=== PATIENT | female | born 1970 | race Caucasian/White ===

== ENCOUNTER 2017-03-01 16:39 | Outpatient (CLI) | payer OTHER ==
--- NOTE | 2017-03-01 19:02 | RAD ---
PA AND LATERAL VIEWS CHEST 03/01/17 HISTORY: Screening for tuberculosis. 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 FINDINGS: Comparison is made with the exam of 02/24/16. The heart size is normal. the lungs are well expanded without focal areas of consolidation, pneumotho rax, or pleural effusions. There are mild degenerative changes in the spine. IMPRESSION: Stable exam. No acute process. POS: [facility]
== END 2017-03-01 16:40 | disposition home or self-care (01) ==
LOC: SCSRAD 16:39
PROVIDERS: ATTEND Dermatology
DX: Z51.81 Encounter for therapeutic drug level monitoring (principal); Z79.899 Other long term (current) drug therapy
CPT/HCPCS: 71020

== ENCOUNTER 2017-04-04 13:43 | Outpatient (CLI) | payer OTHER ==
--- NOTE | 2017-04-04 16:17 | RAD ---
UPPER GI: Date: 04-04-17 History: History of hiatal hernia repair and laparoscopic gastric banding procedure. Patient has dysp hagia and feels as if food and liquids become lodged in the epigastric region. Fluoroscopy: Total fluoroscopy time is 2.5 minutes. Total dose of 1959 mGy*cm^2. FINDINGS: Single contrast upper GI was performed. Resin Mixer image demonstrates laparoscopic gastric band in place w hich is oriented in the appropriate direction. There are surgical clips seen in the epigastric region as well. Visualized lung bases are clear and bowel gas pattern is nonspecific. Upper GI demonstrates normal appearance of the esophagus without evidence of mucosal irregularity. Th ere is mild decrease in esophageal primary peristalsis. There is narrowing at the level of the gastri c band with transient hold up of contrast. With upright positioning, contrast eventually flows freely through this region into the stomach. The stomach, duodenum, and duodenal bulb demonstrate a normal appearance. Upon swallowing with supine imaging, there is hold up of contrast within the esophagus which does not traverse the region of the gastric band and GE junction into the stomach. Patient was placed in upri ght position and contrast eventually passed into the stomach. No gastroesophageal reflux was demonstr ated during this exam. IMPRESSION: 1. Narrowing and transient hold up of contrast at the level of the gastric band. There are post-surgi nigel changes in this region which may be related to prior hiatal hernia repair. 2. Normal appearing esophagus with mild decrease in primary esophageal peristalsis. No tertiary contr actions were appreciated. POS: [facility]
== END 2017-04-04 13:44 | disposition home or self-care (01) ==
LOC: RAD 13:43
PROVIDERS: ATTEND Internal Medicine Gastroenterology
DX: R13.10 Dysphagia, unspecified (principal); R19.2 Visible peristalsis; Z98.84 Bariatric surgery status; Z98.890 Other specified postprocedural states
CPT/HCPCS: 74241

== ENCOUNTER 2017-05-06 08:16 | Outpatient (CLI) | payer OTHER ==
--- NOTE | 2017-05-06 12:27 | NM ---
RADIONUCLIDE GASTRIC EMPTYING SCAN: Date: 05/06/17 HISTORY: Functional dyspepsia, status post lap band surgery. RADIOPHARMACEUTICAL: 2 mCi technetium-99m sulfur colloid administered orally in scrambled eggs. FINDINGS: There is 88% emptying of the ingested gastric contents at 1 hour and 99% emptying at 2 hours. The nigel culated gastric emptying halftime is 51 minutes. IMPRESSION: Rapid gastric emptying. POS: [facility]
== END 2017-05-06 08:17 | disposition home or self-care (01) ==
LOC: NM 08:16
PROVIDERS: ATTEND Internal Medicine Gastroenterology
DX: R13.19 Other dysphagia (principal); Z98.890 Other specified postprocedural states; Z98.84 Bariatric surgery status
CPT/HCPCS: 78264; A9541

== ENCOUNTER 2017-06-11 20:30 | Outpatient (CLI) | payer OTHER | END 2017-06-11 20:31 | disposition home or self-care (01) | LOC: SLEEPLAB 20:30 | PROVIDERS: ATTEND Family Medicine | DX: G47.33 Obstructive sleep apnea (adult) (pediatric) (principal); G47.10 Hypersomnia, unspecified; R53.83 Other fatigue; R06.83 Snoring; E66.9 Obesity, unspecified; G31.84 Mild cognitive impairment of uncertain or unknown etiology; K21.9 Gastro-esophageal reflux disease without esophagitis | CPT/HCPCS: 95810 ==

== ENCOUNTER 2017-07-19 14:37 | Outpatient (CLI) | payer OTHER ==
--- NOTE | 2017-07-19 15:46 | RAD ---
CHEST TWO VIEWS: 07/19/17 HISTORY: Preop. COMPARISON: 03/01/17. FINDINGS: The cardiac silhouette and pulmonary vasculature are unremarkable. Mediastinum is midline. No conflue nt air space consolidation, pneumothorax or pleural fluid are evident. Bariatric device overlies the upper stomach. IMPRESSION: No active cardiopulmonary abnormalities are demonstrated. POS: [facility]
[2017-07-19 15:55] LABS: Hemoglobin A1c 5.3 % (4.0-6.0)
[2017-07-19 16:03] LABS: #Eosinphils 0.1 thou/uL (0.0-0.7); #Lymphocytes 1.4 thou/uL (1.20-3.40); #Monocytes 0.2 thou/uL (0.11-0.59); #Neutrophils 8.4 thou/uL (1.40-6.50); %Basophils 0.4 % (0.0-1.0); %Eosinophils 1.1 % (0.0-10.0); %Monocytes 1.4 % (0.0-10.0); %Neutrophils 83.1 % (42.0-75.0); Mean Corpuscular HGB CONC 34.4 g/dL (32.0-36.0); Mean Corpuscular Hemoglobin 30.2 pg (27.0-31.0); Mean Corpuscular Volume 87.8 fl (81.0-99.0); Platelet Count 401 thou/uL (130-400); RBC Distribution Width 12.2 % (11.5-14.5); Red Blood Cell (RBC) Count 4.63 mill/uL (4.20-5.40); White Blood Cell (WBC) Count 10.1 thou/uL (4.8-10.8)
--- NOTE | 2017-07-19 16:08 | EKG ---
Test Reason : Blood Pressure : / mmHG Vent. Rate : 079 BPM Atrial Rate : 079 BPM P-R Int : 160 ms QRS Dur : 088 ms QT Int : 390 ms P-R-T Axes : 051 014 025 degrees QTc Int : 447 ms Normal sinus rhythm Cannot rule out Anterior infarct , age undetermined Abnormal ECG Confirmed by JOSÉ ANTONIO GOSS ([id number]) on 07/19/2017 4:08:22 PM Referred By: GABINO Confirmed By:JOSÉ ANTONOI GOSS
[2017-07-19 16:09] LABS: ALT (SGPT) 17 U/L (8-55); AST (SGOT) 17 U/L (5-34); Albumin 4.2 g/dL (3.5-5.0); Alkaline Phosphatase 74 U/L (40-150); Anion Gap 16 mmol/L (10-20); BUN (Urea Nitrogen) 11 mg/dL (7.0-18.7); Bilirubin, Direct 0.1 mg/dL (0.1-0.3); Bilirubin, Total 0.3 mg/dL (0.2-1.2); Calc. Creatinine Clearance 0 mL/min (70-130); Calcium 9.3 mg/dL (7.8-10.44); Carbon Dioxide 21 mmol/L (22-29); Chloride 104 mmol/L (98-107); Estimated GFR-MDRD 77; Globulin 3.4 g/dL (2.4-3.5); Glucose 133 mg/dL (70-105); Potassium 4.2 mmol/L (3.5-5.1); Protein, Total 7.6 g/dL (6.0-8.3); Sodium 137 mmol/L (136-145)
[2017-07-19 16:33] LABS: BHCG - Serum Negative (NEGATIVE); Pregs Control Background? CLEAR/WHITE (CLR/WHITE); Pregs Control Bar Appear? YES (CONTROL BAR)
== END 2017-07-19 14:38 | disposition home or self-care (01) ==
LOC: LABBT 14:37
PROVIDERS: ATTEND Surgery
DX: Z01.818 Encounter for other preprocedural examination (principal); R94.31 Abnormal electrocardiogram [ECG] [EKG]
CPT/HCPCS: 71046; 80053; 80076; 83036; 84703; 85025; 93005; 93010

== ENCOUNTER 2017-07-22 08:53 | Day surgery (SDC) | payer OTHER ==
[2017-07-19 15:10] VITALS: BMI 33.7
[2017-07-22] MEDS ORDERED: Heparin 5,000 UNITS/ML VIAL ONE (09:38)
[2017-07-22] MEDS ORDERED: CEFAZOLIN/Water 2 GM/20 ML SYRINGE ONE (09:38)
[2017-07-22] MEDS ORDERED: Bupivacaine/Epinephrine 0.25% 30 ML VIAL ONE (10:43)
[2017-07-22] MEDS ORDERED: Fentanyl 100 MCG/2 ML VIAL ONE ×3 (10:47→12:47)
[2017-07-22] MEDS ORDERED: Midazolam HCl 2 mg/2 ml Vial ONE (10:53)
[2017-07-22] MEDS ORDERED: Scopolamine 1.5 mg/72 hour Patch ONE (10:54)
[2017-07-22] MEDS ORDERED: Ondansetron HCl/PF 4 MG/2 ML Vial ONE (11:11)
--- NOTE | 2017-07-22 12:09 | OP ---
DATE OF PROCEDURE: 07/22/2017 PREOPERATIVE DIAGNOSIS: Dysfunctional lap band. SURGEON: Berhane Jeffery M.D. PROCEDURE: Laparoscopic removal of band and port. INDICATIONS: A 46-year-old female who had a lap band placed about 6 years ago and she has had progre ssive reflux despite removal of all the fluid. FINDINGS: Intact system. PROCEDURE IN DETAIL: After informed consent was obtained, the patient was taken to the operating sushma m and given general endotracheal anesthesia. She was placed in supine position, abdomen was prepped and draped in usual fashion. Local anesthesia infiltrated subcutaneously and deep. A 5 mm incision was performed approximately 8 inches below the xiphoid slightly to the left. Veress needle inserted. Drop test performed. Pneumoperitoneum was created to a volume of 2 liters of carbon dioxide. Util izing a bladeless 5 mm trocar and 0 degree laparoscope direct visual entry in the abdominal cavity wa s performed. Pneumoperitoneum was created to a pressure of 15 mmHg. The patient placed in steep rev erse Trendelenburg position. Nathansen liver retractor inserted. Left lobe of liver retracted super iorly. A 5 mm port was placed just left of the falciform and a 12 mm port was placed where the port was on the left side. The tubing was divided and the tubing then tracked down to the buckle. Adhesi ons were lysed sharply with electrocautery to expose the buckle. The buckle was unlocked and the cap alissa incised then the band was removed from around the stomach and then removed from the abdomen. He mostasis was assured. Trocars and retractors removed. The lap band port was then dissected out and removed. Hemostasis was assured. The subcutaneous reapproximated with interrupted 3-0 Vicryl and th e skin closed with interrupted 4-0 Rapide. Dermabond applied. The patient tolerated the procedure w ell and was transferred to recovery in good condition. Sponge and needle count verified correct x2.
== END 2017-07-22 14:02 | disposition home or self-care (01) ==
LOC: SDC 08:53
PROVIDERS: ATTEND Surgery
PROC: 0DP64CZ Removal of Extraluminal Device from Stomach, Percutaneous Endoscopic Approach (ICD-10-PCS; principal; 2017-07-22)
DX: K95.09 Other complications of gastric band procedure (principal); K21.9 Gastro-esophageal reflux disease without esophagitis; Z98.890 Other specified postprocedural states
CPT/HCPCS: J1644; J2250; J2405; J3010

== ENCOUNTER 2017-07-26 19:30 | Outpatient (CLI) | payer OTHER | END 2017-07-26 19:31 | disposition home or self-care (01) | LOC: SLEEPLAB 19:30 | PROVIDERS: ATTEND Family Medicine | DX: G47.33 Obstructive sleep apnea (adult) (pediatric) (principal); G47.10 Hypersomnia, unspecified; R06.83 Snoring; E66.9 Obesity, unspecified; G31.84 Mild cognitive impairment of uncertain or unknown etiology | CPT/HCPCS: 95811 ==

== ENCOUNTER 2018-07-04 11:39 | Outpatient (CLI) | payer OTHER ==
--- NOTE | 2018-07-04 11:55 | RAD ---
Exam: Chest 2 views HISTORY:Long-term medication use. Annual radiographic surveillance Comparison: 07/19/2017 FINDINGS: Lungs: No masses or consolidation. Cardiac silhouette: Normal size Pulmonary vessels: Normal Pleural Spaces: Clear Pneumothorax: None Osseous abnormalities: None of acuity. IMPRESSION: No focal consolidation.
== END 2018-07-04 11:40 | disposition home or self-care (01) ==
LOC: SCSRAD 11:39
DX: Z51.81 Encounter for therapeutic drug level monitoring (principal); Z79.899 Other long term (current) drug therapy
CPT/HCPCS: 71046

== ENCOUNTER 2018-11-04 17:50 | Inpatient (IN) | payer OTHER ==
--- NOTE | 2018-11-04 18:24 | RAD ---
XR Chest 1 View Portable History: Chest pain Comparison: Radiograph July 04, 2018 Findings: Lungs are clear. No pneumothorax or effusion. Cardiac silhouette and mediastinal contours a re within normal limits. No acute osseous abnormality. Impression: No acute intrathoracic abnormality.
[2018-11-04 18:30] LABS: #Basophils 0.1 thou/uL (0.0-0.2); #Eosinphils 0.4 thou/uL (0.0-0.7); #Lymphocytes 3.5 thou/uL (1.20-3.40); #Monocytes 0.6 thou/uL (0.11-0.59); #Neutrophils 4.9 thou/uL (1.40-6.50); %Basophils 0.6 % (0.0-1.0); %Eosinophils 4.3 % (0.0-10.0); %Lymphocytes 36.9 % (21.0-51.0); %Monocytes 6.3 % (0.0-10.0); %Neutrophils 51.8 % (42.0-75.0); Hemoglobin 13.8 g/dL (12.0-16.0); Mean Corpuscular HGB CONC 33.7 g/dL (32.0-36.0); Mean Corpuscular Hemoglobin 28.5 pg (27.0-31.0); Mean Corpuscular Volume 84.5 fL (78.0-98.0); Mean Platelet Volume 7.8 fL (7.4-10.4); Platelet Count 308 thou/uL (130-400); RBC Distribution Width 12.7 % (11.5-14.5); Red Blood Cell (RBC) Count 4.84 mill/uL (4.20-5.40); White Blood Cell (WBC) Count 9.4 thou/uL (4.8-10.8)
[2018-11-04] MEDS ORDERED: Morphine 4 MG/ML VIAL ONE (18:44)
[2018-11-04] MEDS ORDERED: Aspirin Chewable 81 MG TAB ONE ×2 (18:44→18:45)
[2018-11-04 18:51] LABS: ALT (SGPT) 38 U/L (8-55); AST (SGOT) 22 U/L (5-34); Albumin 4.4 g/dL (3.5-5.0); Alkaline Phosphatase 68 U/L (40-150); Anion Gap 15 mmol/L (10-20); BUN (Urea Nitrogen) 15 mg/dL (7.0-18.7); Bilirubin, Total 0.3 mg/dL (0.2-1.2); CK (CPK) 83 U/L (29-168); Calc. Creatinine Clearance 0 mL/min (70-130); Carbon Dioxide 26 mmol/L (22-29); Chloride 103 mmol/L (98-107); Estimated GFR-MDRD 64; Globulin 3.3 g/dL (2.4-3.5); Glucose 127 mg/dL (70-105); Lipase 39 U/L (8-78); Potassium 3.4 mmol/L (3.5-5.1); Protein, Total 7.7 g/dL (6.0-8.3); Sodium 141 mmol/L (136-145)
[2018-11-04] MEDS ORDERED: Nitroglycerin 2% Ointment 1 INCH/1 GM Packet ONE (20:54)
[2018-11-04 21:36] LABS: Troponin I Less than 0.010 ng/mL (< 0.028)
[2018-11-04] MEDS ORDERED: Acetaminophen 325 MG TAB PO PRN (22:21)
[2018-11-04] MEDS ORDERED: Ondansetron PF 4 MG/2 ML Vial IVP PRN (22:36)
[2018-11-04 22:45] VITALS: BMI 41.0
[2018-11-04] MEDS: Ondansetron ODT 4 MG TAB PO PRN (23:08)
[2018-11-04] MEDS ORDERED: Nitroglycerin 0.4 MG TAB (25 Tab Bottle) PO PRN (23:11)
[2018-11-04] MEDS ORDERED: PROVENTIL INHALER 6.7 G (200 INHALATIONS) INH PRN (23:13)
[2018-11-04] MEDS ORDERED: Furosemide 20 MG TAB PO PRN (23:13)
[2018-11-04] MEDS ORDERED: Sodium Chloride 0.9% (PF) 10 ML VIAL FS PRN (23:37)
[2018-11-04] MEDS: Morphine 2 MG/ML SYRINGE IVP PRN (23:51)
[2018-11-05 01:21] LABS: Troponin I Less than 0.010 ng/mL (< 0.028)
--- NOTE | 2018-11-05 01:51 | HP ---
PRIMARY CARE PHYSICIAN: Domingo Shaw MD CHIEF COMPLAINT: Chest pain. HISTORY OF PRESENT ILLNESS: Ms. Williamson is a pleasant 48-year-old female, who has a past medical history of hypertension, gastroesophageal reflux disease, pustular psoriasis, who had presented to [facility] for a new onset of chest pain that had radiated to her left upper quadrant that started around 3:00 a.m. and woke her up of a deep sleep. She states that she had taken her home Tums and Gas-X; however, she had not noticed any sort of relief from this. She states that she had also noticed that her blood pressure was also increasing, therefore, she had wanted to be seen in the ED. In the ED, her EKG was stable and showed no further changes from a previous study. Portable chest x-ray was performed and found to be normal. The patient was given oral aspirin 324 mg, IV morphine and 1-inch nitroglycerin paste; however, she states that that helped minimally, she had also complained of some mild nausea. Therefore, she was treated with Zofran, which had seemed to help. Blood pressure and other vital signs remained stable, she had denied any fever, chills, any headache, blurred vision, dizziness, any palpitations, shortness of breath, or any change in her stool. The patient states that she had similar symptoms in 2018 where she had undergone an upper EGD, which found esophagitis. However, she states that this time the pain is worse. She states that she was recently started on Taltz for her psoriasis and that she receives every other week. REVIEW OF SYSTEMS: All other systems reviewed and found to be negative unless mentioned in the HPI. PAST MEDICAL HISTORY: Hypertension, gastroesophageal reflux disease, pustular psoriasis. PAST SURGICAL HISTORY: Hernia repair, gastric lap band in 2007 and removal in 2018, appendectomy. PSYCHIATRIC HISTORY: None. SOCIAL HISTORY: The patient reports drinking socially, which is very rarely; however, denies any tobacco or illicit drug use. She lives at home alone. KNOWN ALLERGIES: No known drug allergies. CURRENT HOME MEDICATIONS: 1. Taltz. 2. Cetirizine 10 mg p.o. daily. 3. Fluticasone one spray each nostril daily. 4. Loratadine 10 mg p.o. at bedtime. 5. Protonix 40 mg p.o. daily. 6. Potassium 900 mg p.o. daily. 7. Albuterol sulfate 1 puff inhalation q.i.d. p.r.n. wheezing. 8. Bisoprolol/Hydrochlorothiazide 5 mg/6.25 mg daily. 9. Buspirone 10 mg p.o. daily. 10. Furosemide 20 mg p.o. daily p.r.n. edema. 11. Montelukast 10 mg p.o. daily. PHYSICAL EXAMINATION: VITAL SIGNS: BP 130/76, pulse 64, respirations 20, temperature 98.6, O2 saturation 97% on room air. GENERAL: The patient is awake, alert, and oriented x3, currently lying comfortably in bed and in no acute distress. HEENT: Atraumatic, normocephalic. Pupils are round and reactive to light. Extraocular muscles intact. Moist mucous membranes noted. NECK: Soft and supple. Trachea midline. CARDIOVASCULAR: Positive S1 and S2. Regular rate and rhythm. No murmur auscultated. RESPIRATORY: Clear to auscultation bilaterally. No wheezes, rales, or rhonchi. ABDOMEN: Soft, nontender. Bowel sounds present. MUSCULOSKELETAL: Strength 5+ bilateral upper and lower extremities. Moves all extremities equal. No edema noted. NEUROLOGIC: Cranial nerves 2 through 12 grossly intact. No focal deficits noted. Speech intact and normal. Gait not assessed. SKIN: Warm, dry, and intact. No rashes. No ulceration noted. PSYCHIATRIC: Good mood and affect. LABORATORY DATA: WBC 9.4, RBC 4.84, hemoglobin 13.8, platelet 308. Sodium 141, potassium 3.4, anion gap 15, BUN 15, creatinine 0.93, estimated GFR is 64, glucose 127, AST 22, ALT 38. Troponin less than 0.010 x2. Lipase 39. DIAGNOSTIC IMAGING: Portable chest x-ray showed no acute intrathoracic abnormality. ASSESSMENT AND PLAN: 1. Chest pain, serial troponins are currently negative x2. She will undergo cardiac stress test in the morning to rule out acute coronary syndrome. Due to her recent history of gastroesophageal reflux disease and esophagitis, she will also be treated with IV Protonix as this could also be a cause. 2. Hypertension. Continue home regimen. Monitor blood pressure and other vital signs closely. 3. Gastroesophageal reflux disease as above. Continue on IV Protonix and monitor for symptoms. 4. History of psoriasis, currently stable at this time. 5. Deep venous thrombosis and gastrointestinal prophylaxis. 6. Code status, full code. DISPOSITION: Pending further workup and clinical findings. Job ID: [id number]
[2018-11-05 06:33] LABS: #Basophils 0.1 thou/uL (0.0-0.2); #Eosinphils 0.2 thou/uL (0.0-0.7); #Lymphocytes 2.4 thou/uL (1.20-3.40); #Monocytes 0.7 thou/uL (0.11-0.59); %Basophils 0.5 % (0.0-1.0); %Eosinophils 1.9 % (0.0-10.0); %Lymphocytes 21.2 % (21.0-51.0); %Monocytes 5.8 % (0.0-10.0); %Neutrophils 70.5 % (42.0-75.0); Hemoglobin 12.8 g/dL (12.0-16.0); Mean Corpuscular HGB CONC 33.8 g/dL (32.0-36.0); Mean Corpuscular Hemoglobin 29.1 pg (27.0-31.0); Mean Corpuscular Volume 86.1 fL (78.0-98.0); Mean Platelet Volume 8.5 fL (7.4-10.4); Platelet Count 278 thou/uL (130-400); RBC Distribution Width 12.8 % (11.5-14.5); Red Blood Cell (RBC) Count 4.41 mill/uL (4.20-5.40); White Blood Cell (WBC) Count 11.4 thou/uL (4.8-10.8)
[2018-11-05 06:47] LABS: Anion Gap 13 mmol/L (10-20); BUN (Urea Nitrogen) 11 mg/dL (7.0-18.7); Calc. Creatinine Clearance 144 mL/min (70-130); Calcium 9.3 mg/dL (7.8-10.44); Carbon Dioxide 27 mmol/L (22-29); Cardiac Risk 5.4 (Less than 4.5); Chloride 103 mmol/L (98-107); Cholesterol 190 mg/dl (< 200 Desired); Estimated GFR-MDRD 71; Glucose 113 mg/dL (70-105); HDL Cholesterol 35 mg/dL (>60 Neg Risk); LDL Cholesterol, Calculated 118 mg/dL; Potassium 4.3 mmol/L (3.5-5.1); Sodium 139 mmol/L (136-145); Triglycerides 183 mg/dL (Less than 150)
[2018-11-05] MEDS: Aspirin 81 mg Enteric Coated Tablet PO SCH (08:56)
[2018-11-05] MEDS: Montelukast Sodium 10 mg Tablet PO SCH (08:56)
[2018-11-05] MEDS: busPIRone HCl 10 MG TAB PO SCH (08:56)
[2018-11-05] MEDS: Hydrochlorothiazide 25 MG TAB PO SCH (08:57)
[2018-11-05] MEDS: Pantoprazole 40 MG VIAL IVP SCH ×2 (08:57→23:14)
[2018-11-05] MEDS: Enoxaparin Sodium 40 MG/0.4 ML SYRINGE SC SCH (08:57)
[2018-11-05] MEDS: Morphine 2 MG/ML SYRINGE IVP PRN (08:57)
[2018-11-05] MEDS ORDERED: Famotidine 20 MG TAB PO SCH (09:00)
[2018-11-05] MEDS ORDERED: HCTZ PO SCH (09:00)
[2018-11-05] MEDS ORDERED: BISOPROLOL FUMARATE PO SCH (09:00)
[2018-11-05] MEDS: Ondansetron ODT 4 MG TAB PO PRN (09:05)
--- NOTE | 2018-11-05 13:21 | NM ---
EXAM: Nuclear medicine cardiac perfusion examination with ejection fraction HISTORY: Chest pain TECHNIQUE: Stress images: 30.8 mCi of technetium 9M sestamibi; Lexiscan COMPARISON: None FINDINGS: Tomographic images: No perfusion defects seen on the attenuated corrected images.. Gated images: Normal wall motion and ejection fraction of 62%. EDV: 98 mL LHR: 0.3 IMPRESSION: No perfusion defects with stress.
[2018-11-05] MEDS: Bisoprolol Fumarate 5 MG TAB PO SCH (14:37)
--- NOTE | 2018-11-05 16:02 | PDOC.HOSPP ---
- Subjective Encounter Date: 11/05/18 Encounter Time: 15:57 Subjective: Patient states she continues to feel unwell. Denies any chest pain and states she feels more of LUQ/epigastric pain. Rates it a 4/10 in severity and states it has been constant. Has had persistent nausea with vomiting. [place] nauseated during the stress test and vomited right before it was done. Reports a history of pyelonephritis at a young age. States pain is not as severe but she has been experiencing dysuria for the last few days. No hematuria. Also has had a cold with sinus congestion and cough. [place] cold with chills/ sweats at home. No neck pain or stiffness. No diarrhea. Denies any sob. - Objective Vital Signs & Weight: Vital Signs (12 hours) Temp Pulse Resp BP Pulse Ox 11/05/18 14:00 98.8 F 78 18 131/70 98 11/05/18 07:49 98.2 F 67 18 137/73 93 L 11/05/18 04:16 98.1 F 81 16 138/72 94 L Weight Weight 254 lb 3.2 oz I&O: 11/04/18 11/05/18 11/06/18 06:59 06:59 06:59 Intake Total 480 11 Output Total 300 300 Balance 180 -289 Result Diagrams: 11/05/18 06:07 11/05/18 06:07 ROS - Review of Systems Constitutional: reports: chills, sweats, malaise Eyes: denies: pain, vision change, conjunctivae inflammation, eyelid inflammation, redness, other ENT: reports: nose congestion Respiratory: reports: cough. denies: dry, shortness of breath, hemoptysis, SOB with excertion, pleuritic pain, sputum, wheezing, other Cardiovascular: denies: chest pain, palpitations, orthopnea, paroxysmal noc. dyspnea, edema, light headedness, other Gastrointestinal: reports: nausea, vomitting, abdominal pain. denies: diarrhea , constipation, melena, hematochezia, other Genitourinary: reports: dysuria. denies: frequency, incontinence, hematuria, retention, other Musculoskeletal: denies: neck pain, shoulder pain, arm pain, back pain, hand pain, leg pain, foot pain, other Skin: denies: rash, lesions, jace, bruising, other - Medication Medications: Active Medications Generic Name Dose Route Start Last Admin Trade Name Freq PRN Reason Stop Dose Admin Aspirin 81 mg 11/05/18 09:00 11/05/18 08:56 Ecotrin PO 81 mg DAILY KEVIN Administration Bisoprolol Fumarate 2.5 mg 11/05/18 09:00 11/05/18 14:37 Zebeta PO 2.5 mg DAILY KEVIN Administration Buspirone HCl 10 mg 11/05/18 09:00 11/05/18 08:56 Buspar PO 10 mg DAILY KEVIN Administration Enoxaparin Sodium 40 mg 11/05/18 09:00 11/05/18 08:57 Lovenox SC Not Given 0900 [facility] Hydrochlorothiazide 6.25 mg 11/05/18 09:00 11/05/18 08:57 Hydrochlorothiazide PO 6.25 mg DAILY KEVIN Administration Montelukast Sodium 10 mg 11/05/18 09:00 11/05/18 08:56 Singulair PO 10 mg DAILY KEVIN Administration Morphine Sulfate 2 mg 11/04/18 23:33 11/05/18 08:57 Morphine IVP 2 mg Q4H PRN Administration Pain Ondansetron HCl 4 mg 11/04/18 22:36 11/05/18 09:05 Zofran Odt PO 4 mg Q6H PRN Administration Nausea/Vomiting Pantoprazole Sodium 40 mg 11/05/18 09:00 11/05/18 08:57 Protonix IVP 40 mg Q12HR KEVIN Administration - Exam NAD, awake alert Eye: PERRL, anicteric sclera ENT: normocephalic atraumatic, no oropharyngeal lesions, moist mucosa Neck: supple, symmetric, no JVD, no thyromegaly, no lymphadenopathy Heart: RRR Respiratory: CTAB, no wheezes, no rales, no ronchi, normal chest expansion, no tachypnea Gastrointestinal: soft, non-distended, normal bowel sounds, no palpable masses, no guarding, no rigidity, tender to palpation Gastrointestinal - other findings: Rebound tenderness to LUQ, discomfort with palpation of LUQ/epigastric area Extremities: negative: no cyanosis, no clubbing, no edema, 1+ LE edema, 2+ LE edema, clubbing Skin: normal turgor, no lesions, no rashes Neurological: CN's grossly intact, normal sensation to touch, no weakness, no focal deficits, no new deficit Musculoskeletal: normal tone, normal strength, no muscle wasting Psychiatric: normal affect, normal behavior, A&O x 3 Hosp A/P (1) LUQ pain Code(s): R10.12 - LEFT UPPER QUADRANT PAIN Status: Acute (2) Nausea & vomiting Code(s): R11.2 - NAUSEA WITH VOMITING, UNSPECIFIED Status: Acute (3) Congestion of upper respiratory tract Code(s): J98.8 - OTHER SPECIFIED RESPIRATORY DISORDERS Status: Acute (4) Obesity Code(s): E66.9 - OBESITY, UNSPECIFIED Status: Chronic (5) Hypertension Code(s): I10 - ESSENTIAL (PRIMARY) HYPERTENSION Status: Chronic - Plan Patient underwent ACS rule out, stress test normal. EF within normal range. Troponins negative x 3. Does not appear to have chest pain, pain is in LUQ abdominal pain, tender to palpation and with N/V. Persistent since yesterday. LFTs normal. Lipase normal yesterday. WCC slightly elevated today. Patient afebrile. Hx of pyelonephritis and with dysuria. Will check UA/UCx, if abnormal will obtain CT stone protocol. Continue anti-emetics. Hx of GERD, possible gastritis. Will try GI cocktail. Will place patient on clear liquid diet.
[2018-11-05] MEDS ORDERED: Lidocaine 2% Viscous Solution 20 ML, Aluminum & Magnesium Hydroxide 30 ML, Donnatal Eli... SSW SCH (16:15)
[2018-11-05 17:20] LABS: Lactic Acid 2.1 mmol/L (0.5-2.2)
[2018-11-05 17:21] LABS: Bacteria/HPF None Seen HPF (None Seen); Bilirubin Negative (Negative); Blood, Urine Negative (Negative); Clarity Clear (Clear); Glucose, Urine (Dipstick) Normal (Negative); Leukocyte Negative Leu/uL (Negative); Nitrite Negative (Negative); Protein, Urine (Dipstick) Negative (Neg-Trace); RBC/HPF 0-3 HPF (0-3); Squamous Epithelial 0-3 HPF (0-3); Urobilinogen Normal mg/dL (Less than 2); WBC/HPF 0-3 HPF (0-3)
[2018-11-05 17:24] LABS: Urine Culture Reflex No No
[2018-11-05] MEDS: traMADol HCl 50 MG TAB PO PRN (20:21)
[2018-11-05] MEDS: Acetaminophen 325 MG TAB PO PRN (23:01)
[2018-11-06] MEDS: traMADol HCl 50 MG TAB PO PRN (04:17)
[2018-11-06] MEDS: Acetaminophen 325 MG TAB PO PRN (04:17)
[2018-11-06 05:19] LABS: #Eosinphils 0.5 thou/uL (0.0-0.7); #Monocytes 0.9 thou/uL (0.11-0.59); #Neutrophils 5.4 thou/uL (1.40-6.50); %Basophils 0.5 % (0.0-1.0); %Eosinophils 5.2 % (0.0-10.0); %Lymphocytes 30.4 % (21.0-51.0); %Monocytes 9.2 % (0.0-10.0); %Neutrophils 54.7 % (42.0-75.0); Hemoglobin 12.6 g/dL (12.0-16.0); Mean Corpuscular HGB CONC 32.8 g/dL (32.0-36.0); Mean Corpuscular Volume 85.4 fL (78.0-98.0); Mean Platelet Volume 7.8 fL (7.4-10.4); Platelet Count 257 thou/uL (130-400); RBC Distribution Width 12.8 % (11.5-14.5); Red Blood Cell (RBC) Count 4.52 mill/uL (4.20-5.40); White Blood Cell (WBC) Count 9.8 thou/uL (4.8-10.8)
[2018-11-06 05:38] LABS: Anion Gap 13 mmol/L (10-20); BUN (Urea Nitrogen) 7 mg/dL (7.0-18.7); Calc. Creatinine Clearance 148 mL/min (70-130); Calcium 9.3 mg/dL (7.8-10.44); Carbon Dioxide 29 mmol/L (22-29); Chloride 99 mmol/L (98-107); Estimated GFR-MDRD 73; Glucose 102 mg/dL (70-105); Potassium 3.1 mmol/L (3.5-5.1); Sodium 138 mmol/L (136-145)
[2018-11-06] MEDS: Ondansetron ODT 4 MG TAB PO PRN (06:22)
[2018-11-06] MEDS: Hydrochlorothiazide 25 MG TAB PO SCH (08:45)
[2018-11-06] MEDS: Montelukast Sodium 10 mg Tablet PO SCH (08:45)
[2018-11-06] MEDS: busPIRone HCl 10 MG TAB PO SCH (08:45)
[2018-11-06] MEDS: Enoxaparin Sodium 40 MG/0.4 ML SYRINGE SC SCH (08:45)
[2018-11-06] MEDS: Bisoprolol Fumarate 5 MG TAB PO SCH (08:46)
[2018-11-06] MEDS: Aspirin 81 mg Enteric Coated Tablet PO SCH (08:46)
[2018-11-06] MEDS ORDERED: Pot Chloride/Pot Bicarb/Cit Ac 25 mEq Effervescent Tablet PO SCH (09:15)
[2018-11-06 10:47] LABS: ALT (SGPT) 35 U/L (8-55); AST (SGOT) 21 U/L (5-34); Albumin 3.9 g/dL (3.5-5.0); Alkaline Phosphatase 66 U/L (40-150); Bilirubin, Direct 0.2 mg/dL (0.1-0.3); Bilirubin, Total 0.6 mg/dL (0.2-1.2); Protein, Total 7.3 g/dL (6.0-8.3)
--- NOTE | 2018-11-06 13:09 | CT ---
EXAM: CT Abdomen Pelvis W Con PROVIDED CLINICAL HISTORY: Abdominal pain COMPARISON: 02/05/2015 FINDINGS: Visualized lung bases are free of significant opacity. There is a mild-moderate hiatal hernia. Nonspecific noncircumscribed fluid density within the retrocr ural fat. Diffuse fatty infiltration of the liver. Kidneys, adrenal glands and pancreas appear unremarkable. Sp van appears unremarkable. There is enlargement of the gallbladder with numerous gallstones demonstrated. There is pericholecyst ic fluid and fat stranding seen about the gallbladder fundus. There is a small amount of nonspecific free pelvic fluid. There is no evidence for bowel obstruction or free air. No regional lymph node enlargement apparent. The regional major vascular structures appear unremarkable. Nonspecific 3.6 cm left adnexal cyst. The osseous structures demonstrate no concerning lytic or blastic lesions. Lower lumbar spine postope rative changes are seen. IMPRESSION: 1. Findings compatible with acute cholecystitis. Findings communicated to the patient's nurse, Yolanda , 1:06 PM November 06, 2018. 2. Chronic findings as above.
[2018-11-06] MEDS ORDERED: Regadenoson 0.4 MG/5 ML SYRINGE ONE (13:52)
--- NOTE | 2018-11-06 15:04 | CON ---
DATE OF CONSULTATION: 11/06/2018 CHIEF COMPLAINT: Upper abdominal pain. HISTORY OF PRESENT ILLNESS: This is a 48-year-old female, who presents with a bilateral upper abdominal pain radiating to her left chest, admitted for cardiac workup including nuclear stress. It has all been ruled as negative. Due to the persistence of her pain associated with nausea, a CAT scan was performed, which shows pericholecystic fluid and stranding around the gallbladder and several large stones. Her liver function tests are normal. She denies previous known history of gallstones, jaundice, or pancreatitis. Her pain is 8/10 and sharp in the upper abdomen. She had previous band and lap band removal by Dr. Jeffery. PAST MEDICAL HISTORY: Includes morbid obesity, hypertension, GERD, and psoriasis. PAST SURGICAL HISTORY: Hernia, lap band removal, and appendectomy. MEDICATIONS: Medicines taken daily, see list. ALLERGIES: NO KNOWN DRUG ALLERGIES. SOCIAL HISTORY: No smoking, alcohol, or other drugs. REVIEW OF SYSTEMS: Ten-system review of systems is otherwise negative unless described above. PHYSICAL EXAMINATION: VITAL SIGNS: Blood pressure is 127/58, pulse 64, respirations 18, and she is afebrile. HEENT: Sclerae are anicteric. Oropharynx clear. NECK: No lymphadenopathy. CHEST: Clear. HEART: Regular rate and rhythm. ABDOMEN: Soft, tender in bilateral upper abdomen without guarding or rebound. No abdominal or inguinal hernias. EXTREMITIES: No ischemia or edema to extremities. LABORATORY DATA: White blood cell count is 9, hemoglobin 12, and platelet count is 257. Liver function test all normal. Creatinine 0.83. Her CT scan shows gallstones, pericholecystic fluid, and stranding. ASSESSMENT: 1. Acute cholecystitis. 2. Chest pain, rule out myocardial infarction. 3. Hypertension. 4. Morbid obesity. PLAN: Laparoscopic cholecystectomy today. Risks, benefits, and alternatives were discussed. She gives consent. We will do this today. Job ID: [id number]
--- NOTE | 2018-11-06 15:29 | PDOC.HOSPP ---
- Subjective Encounter Date: 11/06/18 Encounter Time: 09:15 Subjective: Patient reports abdominal pain is not as acute but still there, primary issue today is nausea. Reports it was fine until she tried to drink some coffee and the nausea returned. Reports she ate nuts, cheese, chicken prior to onset of acute pain on Tuesday. - Objective Vital Signs & Weight: Vital Signs (12 hours) Temp Pulse Resp BP Pulse Ox 11/06/18 11:52 98.2 F 64 18 127/58 L 96 11/06/18 07:40 98.5 F 65 16 100/52 L 95 11/06/18 04:16 98.6 F 77 18 134/60 95 Weight Weight 115.303 kg I&O: 11/05/18 11/06/18 11/07/18 06:59 06:59 06:59 Intake Total 480 1071 Output Total 300 1700 Balance 180 -629 Result Diagrams: 11/06/18 05:01 11/06/18 05:01 ROS - Review of Systems Gastrointestinal: reports: nausea, vomitting, abdominal pain - Medication Medications: Active Medications Generic Name Dose Route Start Last Admin Trade Name Freq PRN Reason Stop Dose Admin Acetaminophen 650 mg 11/05/18 22:56 11/06/18 04:17 Tylenol PO 650 mg Q4H PRN Administration Headache/Temp/Pain Aspirin 81 mg 11/05/18 09:00 11/06/18 08:46 Ecotrin PO 81 mg DAILY KEVIN Administration Bisoprolol Fumarate 2.5 mg 11/05/18 09:00 11/06/18 08:46 Zebeta PO 2.5 mg DAILY KEVIN Administration Buspirone HCl 10 mg 11/05/18 09:00 11/06/18 08:45 Buspar PO 10 mg DAILY KEVIN Administration Enoxaparin Sodium 40 mg 11/05/18 09:00 11/06/18 08:45 Lovenox SC Not Given 0900 [facility] Hydrochlorothiazide 6.25 mg 11/05/18 09:00 11/06/18 08:45 Hydrochlorothiazide PO 6.25 mg DAILY KEVIN Administration Montelukast Sodium 10 mg 11/05/18 09:00 11/06/18 08:45 Singulair PO 10 mg DAILY KEVIN Administration Ondansetron HCl 4 mg 11/04/18 22:36 11/06/18 06:22 Zofran Odt PO 4 mg Q6H PRN Administration Nausea/Vomiting Pantoprazole Sodium 40 mg 11/06/18 09:00 11/06/18 08:45 Protonix PO 40 mg Q12HR KEVIN Administration Tramadol HCl 50 mg 11/05/18 16:12 11/06/18 04:17 Ultram PO 50 mg Q4H PRN Administration Pain - Exam NAD Eye: PERRL ENT: moist mucosa Neck: supple Heart: RRR, no murmur Respiratory: CTAB, normal chest expansion Gastrointestinal: soft, normal bowel sounds, tender to palpation Gastrointestinal - other findings: upper abdominal pain on palpation Extremities: no edema Skin: normal turgor Neurological: CN's grossly intact Musculoskeletal: normal tone Hosp A/P (1) LUQ pain Code(s): R10.12 - LEFT UPPER QUADRANT PAIN Status: Acute (2) Nausea & vomiting Code(s): R11.2 - NAUSEA WITH VOMITING, UNSPECIFIED Status: Acute (3) Hypertension Code(s): I10 - ESSENTIAL (PRIMARY) HYPERTENSION Status: Chronic (4) Obesity Code(s): E66.9 - OBESITY, UNSPECIFIED Status: Chronic - Plan old records reviewed/req Repeat liver enzymes, CT abd/pelvis to rule out acute pathology, especially due to history of lap band and subsequent removal. Patient has been po intolerant due to nausea and abdominal pain, stress test negative. 1400- patient with acute cholecystitis on CT scan, general surgery consulted and will take her to the OR today. Will continue to monitor. Will dc home once cleared by general surgery.
[2018-11-06] MEDS ORDERED: ceFAZolin Sodium (SDC) 2 GM/100 ML BAG ONE (15:41)
[2018-11-06] MEDS ORDERED: Fentanyl 100 MCG/2 ML VIAL ONE ×3 (15:48→18:08)
[2018-11-06] MEDS ORDERED: Bupivacaine/Epinephrine 0.25% 30 ML VIAL ONE (15:54)
[2018-11-06] MEDS ORDERED: Iopamidol 370 76% 100 ML VIAL ONE (16:25)
[2018-11-06] MEDS ORDERED: PROPOFOL 20 ML ONE (16:42)
[2018-11-06] MEDS ORDERED: SUGAMMADEX SODIUM 500 MG/5 ML VIAL ONE (16:52)
[2018-11-06] MEDS ORDERED: Ondansetron HCl/PF 4 MG/2 ML Vial IVP PRN ×2 (17:29)
[2018-11-06] MEDS ORDERED: Promethazine HCl 25 MG/ML VIAL SLOW IVP PRN (17:29)
[2018-11-06] MEDS ORDERED: Meperidine HCl/PF 25 MG/ML VIAL SLOW IVP PRN (17:29)
[2018-11-06] MEDS ORDERED: Meperidine HCl/PF 25 MG/ML VIAL ONE (17:32)
--- NOTE | 2018-11-06 18:01 | OP ---
DATE OF PROCEDURE: 11/06/2018 PREOPERATIVE DIAGNOSIS: Acute cholecystitis. POSTOPERATIVE DIAGNOSIS: Acute cholecystitis. PROCEDURE PERFORMED: Laparoscopic cholecystectomy. ANESTHESIA: General. SPECIMEN: None. COMPLICATIONS: None. SPECIMEN: Gallbladder. FINDINGS: Cholecystitis. DESCRIPTION OF PROCEDURE: The patient was taken to the operating room and laid supine on the operating room table. After general anesthetic was obtained, the abdomen was prepped and draped in a sterile fashion. A curved incision was made below the umbilicus. Cautery was used to dissect down to the umbilical fascia. Umbilical fascia was incised and held up using a Julieth. The abdominal cavity was entered using a Dotty clamp. Holding stitch of Vicryl was placed on each side of the fascia. Sommers trocar was placed. High-flow pneumoperitoneum was obtained. An upper midline 5 mm port and 2 right upper quadrant 5 mm ports were placed under direct camera visualization. The gallbladder was retracted from the gallbladder fossa. The peritoneum of the gallbladder was opened anteriorly and posteriorly. The critical view triangle was seen showing only the cystic duct and cystic artery branching from medial to lateral. There were no other branching structures. Two clips were placed proximally on the cystic duct and one laterally. It was cut using laparoscopic scissors. The cystic artery was taken in the same way. Electrocautery was then used to dissect the gallbladder out of the gallbladder fossa. The gallbladder was placed in an Endo catch bag and brought out through the Sommers. There was no bleeding or bile in the liver bed. The cystic duct stump and cystic artery stump were intact, without evidence of extravasation or bleeding. All port sites were infiltrated using local anesthesia. All ports were removed under camera visualization. Pneumoperitoneum was let down. The Vicryl was used to close the fascial defect below the umbilicus. All incisions were irrigated and closed using 4-0 Monocryl and Dermabond. The patient was en route to Recovery in stable condition. All instrument counts, needle counts and lap counts were correct. Job ID: [id number]
[2018-11-06] MEDS ORDERED: Calcium Carbonate 500 MG ChewTAB PO PRN (18:08)
[2018-11-06] MEDS ORDERED: Morphine 4 MG/ML VIAL SLOW IVP PRN ×2 (18:08)
[2018-11-06] MEDS ORDERED: Mag-Al 1200 mg/1200 mg/30 ML UDCUP PO PRN (18:08)
[2018-11-06] MEDS ORDERED: hydrALAZINE 20 MG/ML VIAL SLOW IVP PRN (18:08)
[2018-11-06] MEDS ORDERED: Promethazine HCl 25 MG/ML VIAL IM PRN (18:08)
[2018-11-06] MEDS ORDERED: Dextrose 5% in Water 1,000 ML IV PRN (18:08)
[2018-11-06] MEDS ORDERED: Dextrose 50% Abboject 50 ML SYRINGE SLOW IVP PRN (18:08)
[2018-11-06] MEDS ORDERED: HYDROcodone/Acetaminophen 10/325 mg Tablet PO PRN (18:08)
[2018-11-06] MEDS: Sodium Chloride 0.9% 1,000 ML IV SCH (18:37)
[2018-11-06] MEDS ORDERED: Famotidine/PF 20 mg/2ml Vial SLOW IVP SCH (21:00)
[2018-11-06] MEDS: Famotidine 20 MG TAB PO SCH (21:41)
[2018-11-06] MEDS: HYDROcodone/Acetaminophen 10/325 mg Tablet PO PRN (21:44)
[2018-11-07] MEDS: Ondansetron PF 4 MG/2 ML Vial IVP PRN ×3 (00:28→12:46)
[2018-11-07 05:15] LABS: #Lymphocytes 1.4 thou/uL (1.20-3.40); #Monocytes 0.7 thou/uL (0.11-0.59); #Neutrophils 5.6 thou/uL (1.40-6.50); %Basophils 0.1 % (0.0-1.0); %Eosinophils 0.2 % (0.0-10.0); %Lymphocytes 18.4 % (21.0-51.0); %Monocytes 9.2 % (0.0-10.0); %Neutrophils 72.1 % (42.0-75.0); Hemoglobin 12.5 g/dL (12.0-16.0); Mean Corpuscular HGB CONC 32.9 g/dL (32.0-36.0); Mean Corpuscular Hemoglobin 28.3 pg (27.0-31.0); Mean Corpuscular Volume 85.9 fL (78.0-98.0); Mean Platelet Volume 7.7 fL (7.4-10.4); Platelet Count 272 thou/uL (130-400); RBC Distribution Width 12.5 % (11.5-14.5); Red Blood Cell (RBC) Count 4.43 mill/uL (4.20-5.40); White Blood Cell (WBC) Count 7.8 thou/uL (4.8-10.8)
[2018-11-07 05:34] LABS: Anion Gap 12 mmol/L (10-20); BUN (Urea Nitrogen) 8 mg/dL (7.0-18.7); Calc. Creatinine Clearance 146 mL/min (70-130); Calcium 9.1 mg/dL (7.8-10.44); Carbon Dioxide 30 mmol/L (22-29); Chloride 99 mmol/L (98-107); Estimated GFR-MDRD 72; Glucose 142 mg/dL (70-105); Potassium 3.7 mmol/L (3.5-5.1); Sodium 137 mmol/L (136-145)
[2018-11-07] MEDS: HYDROcodone/Acetaminophen 10/325 mg Tablet PO PRN ×2 (06:14→12:43)
[2018-11-07] MEDS: Sodium Chloride 0.9% 1,000 ML IV SCH (07:02)
[2018-11-07] MEDS ORDERED: Pot Chloride/Pot Bicarb/Cit Ac 25 mEq Effervescent Tablet PO SCH (08:00)
[2018-11-07] MEDS: Bisoprolol Fumarate 5 MG TAB PO SCH (09:03)
[2018-11-07] MEDS: Famotidine 20 MG TAB PO SCH (09:03)
[2018-11-07] MEDS: Montelukast Sodium 10 mg Tablet PO SCH (09:03)
[2018-11-07] MEDS: Hydrochlorothiazide 25 MG TAB PO SCH (09:03)
[2018-11-07] MEDS: busPIRone HCl 10 MG TAB PO SCH (09:03)
--- NOTE | 2018-11-07 09:48 | PDOC.GSPN ---
Surgery Progress Note: Subj - Subjective Narrative: c/o nausea Surgery Progress Note: Obj - Vital signs Vital signs: Vital Signs - Most Recent Temp Pulse Resp BP Pulse Ox 98.7 F 72 18 121/59 L 92 L 11/07/18 08:00 11/07/18 08:00 11/07/18 08:00 11/07/18 08:00 11/07/18 08:00 - Physical Exam General: no distress Abdomen: soft, appropriately tender Wound: healing well Surgery Progress Note: Results - Labs Result Diagrams: 11/07/18 04:56 11/07/18 04:56 Lab results: Laboratory Results - last 24 hr 11/07/18 11/07/18 04:56 04:56 WBC 7.8 RBC 4.43 Hgb 12.5 Hct 38.1 MCV 85.9 MCH 28.3 MCHC 32.9 RDW 12.5 Plt Count 272 MPV 7.7 Neutrophils % 72.1 Lymphocytes % 18.4 L Monocytes % 9.2 Eosinophils % 0.2 Basophils % 0.1 Neutrophils # 5.6 Lymphocytes # 1.4 Monocytes # 0.7 H Eosinophils # 0.0 Basophils # 0.0 Sodium 137 Potassium 3.7 Chloride 99 Carbon Dioxide 30 H Anion Gap 12 BUN 8 Creatinine 0.84 Estimated GFR (MDRD) 72 Glucose 142 H Calcium 9.1 Surgery Progress Note: A/P - Problem (1) Cholecystitis Current Visit: Yes Code(s): K81.9 - CHOLECYSTITIS, UNSPECIFIED Status: Acute - Plan Plan: pod 1 -home later today if nausea improved -I [facility]'s [facility]
[2018-11-07 12:02] VITALS: BP 120/60; TEMP 98.9
== END 2018-11-07 15:40 | disposition home or self-care (01) | DRG 418 ==
LOC: ERS 17:50 → 2SW 20:43 → OBSVTOIN 20:43 → 2SW 22:10
PROVIDERS: ADMIT Hospitalist; ATTEND Hospitalist
PROC: 0FT44ZZ Resection of Gallbladder, Percutaneous Endoscopic Approach (ICD-10-PCS; principal; 2018-11-06)
DX: K81.0 Acute cholecystitis (principal); Z68.41 Body mass index [BMI] 40.0-44.9, adult; I10 Essential (primary) hypertension; K21.9 Gastro-esophageal reflux disease without esophagitis; L40.1 Generalized pustular psoriasis; E66.01 Morbid (severe) obesity due to excess calories; Z79.899 Other long term (current) drug therapy; Z90.49 Acquired absence of other specified parts of digestive tract
CPT/HCPCS: 36415; 71045; 74177; 78452; 80048; 80053; 80061; 80076; 81001; 82550; 83605; 83690; 84145; 84484; 85025; 88304; 93005; 93017; 94760; 96374; A9500; C9113; J0131; J0690; J1650; J2175; J2270; J2405; J2550; J2704; J2785; J3010; Q0162; Q9967

== ENCOUNTER 2019-10-01 14:09 | Outpatient (CLI) | payer OTHER | END 2019-10-01 14:10 | disposition home or self-care (01) | LOC: DTY/OP 14:09 | PROVIDERS: ATTEND Surgery | DX: E66.01 Morbid (severe) obesity due to excess calories (principal) | CPT/HCPCS: 97802 ==

== ENCOUNTER 2019-10-31 13:32 | Outpatient (CLI) | payer OTHER | END 2019-10-31 13:33 | disposition home or self-care (01) | LOC: DTY/OP 13:32 | PROVIDERS: ATTEND Surgery | DX: E66.01 Morbid (severe) obesity due to excess calories (principal) | CPT/HCPCS: 97802 ==

== ENCOUNTER 2019-12-06 13:36 | Outpatient (CLI) | payer OTHER | END 2019-12-06 13:37 | disposition home or self-care (01) | LOC: DTY/OP 13:36 | PROVIDERS: ATTEND Surgery | DX: E66.01 Morbid (severe) obesity due to excess calories (principal) | CPT/HCPCS: 97802 ==

== ENCOUNTER 2020-03-12 06:15 | Outpatient (CLI) | payer OTHER ==
[2020-03-12 10:40] LABS: #Basophils 0.1 10x3/uL (0.0-0.2); #Eosinphils 0.4 10x3/uL (0.0-0.5); #Monocytes 0.8 10x3/uL (0.0-1.1); #Neutrophils 3.7 10x3/uL (1.5-8.4); %Basophils 0.9 % (0.0-2.0); %Eosinophils 4.2 % (0.0-6.0); %Lymphocytes 42.6 % (18.0-47.0); %Monocytes 9.1 % (0.0-10.0); Hemoglobin 13.2 g/dL (12.0-16.0); Mean Corpuscular HGB CONC 32.6 G/DL (32.0-36.0); Mean Corpuscular Hemoglobin 27.3 PG (27.0-33.0); Mean Corpuscular Volume 83.7 fl (80.0-100.0); Mean Platelet Volume 10.4 fl (7.4-10.4); Platelet Count 327 10x3/uL (130-400); RBC Distribution Width 14.6 % (11.5-14.5); Red Blood Cell (RBC) Count 4.84 10x6/uL (3.90-5.20); White Blood Cell (WBC) Count 8.5 10x3/uL (4.5-11.0)
[2020-03-12 10:47] LABS: ALT (SGPT) 66 U/L (8-55); AST (SGOT) 33 U/L (5-34); Albumin 4.4 g/dL (3.5-5.0); Alkaline Phosphatase 79 U/L (40-110); Anion Gap 19 mmol/L (10-20); BUN (Urea Nitrogen) 21 mg/dL (9.8-20.1); Bilirubin, Total 0.4 mg/dL (0.2-1.2); Calc. Creatinine Clearance 0 mL/min (70-130); Calcium 9.9 mg/dL (7.8-10.44); Carbon Dioxide 25 mmol/L (22-29); Chloride 100 mmol/L (98-107); Globulin 3.3 g/dL (2.4-3.5); Glucose 93 mg/dL (70-105); Potassium 3.8 mmol/L (3.5-5.1); Protein, Total 7.7 g/dL (6.0-8.3); Sodium 140 mmol/L (136-145)
--- NOTE | 2020-03-12 12:09 | RAD ---
PA AND LATERA CHEST: Date: 03/12/2020 HISTORY: Preop. COMPARISON: 02/23/2019 exam. FINDINGS: Heart size and mediastinum are within normal limits. Lungs are clear of infiltrates. There are arthri tic changes of the spine. IMPRESSION: No active intrathoracic disease. POS: BERNARDINO
[2020-03-12 14:39] LABS: Hemoglobin A1c 6.1 % (4.0-6.0)
[2020-03-12 18:18] LABS: SARS-CoV-2 MS2 Positive; SARS-CoV-2 N Gene Negative; SARS-CoV-2 S Gene Negative; SARS-CoV-2 by NAA Not Detected (NotDetected); SARS-CoV-2 orf1ab Negative
== END 2020-03-12 06:16 | disposition home or self-care (01) ==
LOC: LABBT 06:15
PROVIDERS: ATTEND Surgery
DX: Z01.818 Encounter for other preprocedural examination (principal); Z20.828 Contact with and (suspected) exposure to other viral communicable diseases; E66.01 Morbid (severe) obesity due to excess calories
CPT/HCPCS: 71046; 80053; 83036; 85025; 87635; 93005; 93010; U0003

== ENCOUNTER 2020-03-12 09:00 | Inpatient (IN) | payer OTHER ==
[2020-03-14 10:49] VITALS: BMI 44.8
[2020-03-17] MEDS ORDERED: Midazolam HCl 2 mg/2 ml Vial ONE ×2 (06:26→07:02)
[2020-03-17] MEDS ORDERED: Fentanyl 100 MCG/2 ML VIAL ONE ×3 (06:26→10:16)
[2020-03-17] MEDS ORDERED: Bupivacaine 0.25% HCL 30 ML VIAL ONE (06:59)
[2020-03-17] MEDS ORDERED: Lidocaine 1% w/Epinephrine 1:100K 20 ML VIAL ONE (06:59)
[2020-03-17] MEDS ORDERED: Scopolamine 1.5 mg/72 hour Patch ONE (07:03)
[2020-03-17] MEDS ORDERED: Heparin 5,000 UNITS/ML VIAL ONE (07:03)
[2020-03-17] MEDS ORDERED: Dextrose 50% Abboject 50 ML SYRINGE SLOW IVP PRN (08:57)
[2020-03-17] MEDS ORDERED: Promethazine HCl 25 MG/ML VIAL IM PRN ×2 (08:57→09:07)
[2020-03-17] MEDS ORDERED: Hydrocodone-Acetamin 15 ML UDCUP PO PRN (08:57)
[2020-03-17] MEDS ORDERED: hydrALAZINE 20 MG/ML VIAL SLOW IVP PRN (08:57)
[2020-03-17] MEDS ORDERED: diphenhydrAMINE 50 MG/ML VIAL IVP PRN ×2 (08:57→09:39)
[2020-03-17] MEDS ORDERED: Dextrose 5% in Water 1,000 ML IV PRN (08:57)
[2020-03-17] MEDS ORDERED: Ondansetron PF 4 MG/2 ML Vial IVP PRN (08:57)
[2020-03-17] MEDS ORDERED: Ondansetron HCl/PF 4 MG/2 ML Vial IVP PRN (09:07)
[2020-03-17] MEDS ORDERED: PACU-Morphine 4MG/ML VIAL SLOW IVP PRN (09:07)
[2020-03-17] MEDS ORDERED: Promethazine HCl 25 MG/ML VIAL SLOW IVP PRN (09:07)
[2020-03-17] MEDS ORDERED: Promethazine HCl 25 MG/ML VIAL ONE (09:16)
[2020-03-17] MEDS ORDERED: Zolpidem Tartrate 5 MG TAB PO PRN (09:39)
[2020-03-17] MEDS ORDERED: diphenhydrAMINE 50 MG/ML VIAL IM PRN (09:39)
[2020-03-17] MEDS ORDERED: diphenhydrAMINE 25 MG CAP PO PRN (09:39)
[2020-03-17] MEDS ORDERED: Naloxone HCl 0.4 mg/ml Vial IV PRN (09:39)
[2020-03-17] MEDS ORDERED: Communication Order-Pharmacy FS SCH (09:45)
[2020-03-17] MEDS ORDERED: Lidocaine 1% PF 5 ML VIAL ONE (10:12)
[2020-03-17] MEDS ORDERED: Rocuronium Bromide 10 MG/ML (10ML VIAL) ONE (10:12)
[2020-03-17] MEDS ORDERED: Labetalol HCl 100 MG/20 ML VIAL ONE (10:12)
[2020-03-17] MEDS ORDERED: PROPOFOL 200 MG/20 ML VIAL ONE (10:12)
[2020-03-17] MEDS ORDERED: Dexamethasone 20 MG/5 ML VIAL ONE (10:12)
[2020-03-17] MEDS ORDERED: Glycopyrrolate 0.2 MG/ML 5 ML SYRINGE ONE (10:12)
[2020-03-17] MEDS ORDERED: Ketorolac Tromethamine 30 MG/ML VIAL ONE (10:12)
[2020-03-17] MEDS ORDERED: Ondansetron PF 4 MG/2 ML Vial ONE (10:12)
--- NOTE | 2020-03-17 11:27 | OP ---
DATE OF PROCEDURE: 03/17/2020 PREOPERATIVE DIAGNOSIS: Morbid obesity. PROCEDURE PERFORMED: Laparoscopic sleeve gastrectomy with esophagogastroscopy. INDICATIONS: A 49-year-old female, morbidly obese, who has attempted multiple weight loss programs without success. FINDINGS: A 38-[place] bougie used. DESCRIPTION OF PROCEDURE: After informed consent was obtained, the patient was taken to the operating room, given general endotracheal anesthesia, placed in supine position. Abdomen was prepped and draped in usual fashion. Local anesthesia was infiltrated subcutaneously and deep, and a 12 mm incision was performed approximately 8 inches above the xiphoid, slightly to the left. Veress needle inserted. Drop test performed. Pneumoperitoneum was created to a volume of 2 L of carbon dioxide. Utilizing a bladeless 12 mm trocar and 0-degree laparoscope, direct visual entry into the abdominal cavity was performed. Pneumoperitoneum was then created to a pressure of 15 mmHg and the patient placed in steep reverse Trendelenburg position. A Libby liver retractor was inserted. Left lobe of the liver retracted superiorly. The pylorus was identified. A 12-mm port was placed on the right beneath it and two 12s placed left subcostal. The omentum was taken off the greater curvature 5 cm from the pylorus utilizing the LigaSure. Short gastrics divided with LigaSure. Left crura defined with the LigaSure. A 38-[place] bougie inserted, directed into the antrum. The linear 60 mm green load stapler used to divide the antrum to the bougie, gold load along the bougie, and a series of blues through the angle of His. Intraoperative endoscopy was performed. The video endoscope was inserted under direct vision and advanced into the sleeve. Staple line inspected. There was no bleeding. Staple line then tested by inflating the stomach with pressurized air under water. There was no air leak. Stomach was decompressed. Scope removed. The remnant stomach removed from the abdomen through the left lateral port site. The fascia closed with 0 Vicryl suture in the GraNee needle. Trocars and retractors removed. The skin closed with interrupted 4-0 Rapide. Dermabond applied. The patient tolerated the procedure well, transferred to Recovery in good condition. Sponge and needle count verified correct x2. Job ID: [id number]
[2020-03-17] MEDS: Ketorolac Tromethamine 30 MG/ML VIAL IVP SCH ×3 (12:39→22:26)
[2020-03-17] MEDS: D5 1/2 NS w/20 mEq KCL 1,000 ML IV SCH ×3 (12:39→22:40)
[2020-03-17] MEDS: Ondansetron PF 4 MG/2 ML Vial IVP PRN ×2 (12:40→18:35)
[2020-03-17] MEDS: Pantoprazole 40 MG VIAL IVP SCH (12:41)
[2020-03-17 15:32] LABS: Hemoglobin 10.1 g/dL (12.0-16.0)
[2020-03-17] MEDS: CEFAZOLIN 2 GM in Premix Bag 1 BAG IVPB SCH ×2 (15:53→22:26)
[2020-03-17] MEDS ORDERED: Sodium Chloride 0.9% 500 ML IV SCH (17:15)
[2020-03-17 17:53] LABS: Hemoglobin 9.7 g/dL (12.0-16.0)
[2020-03-17] MEDS: Promethazine HCl 25 MG/ML VIAL IM PRN (22:18)
[2020-03-17 23:14] LABS: Hemoglobin 9.5 g/dL (12.0-16.0)
[2020-03-18] MEDS: Ondansetron PF 4 MG/2 ML Vial IVP PRN ×4 (01:55→20:08)
[2020-03-18 05:20] LABS: #Lymphocytes 2.5 thou/uL (1.20-3.40); #Monocytes 1.2 thou/uL (0.11-0.59); %Eosinophils 0.1 % (0.0-10.0); %Lymphocytes 18.4 % (21.0-51.0); %Neutrophils 72.5 % (42.0-75.0); Hemoglobin 8.6 g/dL (12.0-16.0); Mean Corpuscular HGB CONC 33.6 g/dL (32.0-36.0); Mean Corpuscular Hemoglobin 28.4 pg (27.0-31.0); Mean Corpuscular Volume 84.4 fL (78.0-98.0); Mean Platelet Volume 7.8 fL (7.4-10.4); Platelet Count 302 thou/uL (130-400); RBC Distribution Width 13.9 % (11.5-14.5); Red Blood Cell (RBC) Count 3.01 mill/uL (4.20-5.40); White Blood Cell (WBC) Count 13.8 thou/uL (4.8-10.8)
[2020-03-18 05:39] LABS: Anion Gap 11 mmol/L (10-20); BUN (Urea Nitrogen) 12 mg/dL (9.8-20.1); Calc. Creatinine Clearance 148 mL/min (70-130); Calcium 7.8 mg/dL (7.8-10.44); Carbon Dioxide 25 mmol/L (22-29); Chloride 106 mmol/L (98-107); Glucose 178 mg/dL (70-105); Potassium 3.7 mmol/L (3.5-5.1); Sodium 138 mmol/L (136-145)
[2020-03-18] MEDS: Ketorolac Tromethamine 30 MG/ML VIAL IVP SCH ×2 (05:41→10:30)
[2020-03-18] MEDS: Pantoprazole 40 MG VIAL IVP SCH (07:45)
[2020-03-18] MEDS: D5 1/2 NS w/20 mEq KCL 1,000 ML IV SCH ×2 (07:45→18:16)
[2020-03-18] MEDS ORDERED: Enoxaparin Sodium 40 MG/0.4 ML SYRINGE SC SCH (09:00)
--- NOTE | 2020-03-18 09:07 | CT ---
CT ANGIOGRAM THORAX WITH CONTRAST: (CTA pulmonary angiogram) DATE: 03/18/2020 HISTORY: 49-year-old female with tachycardia TECHNIQUE: IV injection of iodinated contrast. Scan acquisition timing attempted to coincide with iodinated contrast bolus reaching maximal density in pulmonary arteries. 3-D MIP reconstructions. FINDINGS: Fatty liver. No splenomegaly. Small amount of free fluid around the spleen. Large hematoma adjacent t o narrowed stomach. Suture line along stomach. No thoracic aortic aneurysm or dissection. Small bilateral pleural effusions. Adjacent consolidations at the medial aspect of right lower lobe lung base of moderate size, and broa dly abutting the left hemidiaphragm on the left side Suboptimal contrast opacification of pulmonary arteries. No thrombus visualized in pulmonary trunk, left and right main pulmonary arteries, or their first and second order branches. More peripheral branches are difficult to evaluate because of poor IV contrast opacification. No pericardial effusion. Scattered mildly enlarged mediastinal lymph nodes and hilar lymph nodes. No pulmonary edema or pneumothorax. IMPRESSION: 1) no central pulmonary thromboembolism. Peripheral branches of pulmonary arteries are difficult to e valuate because of poor IV contrast opacification. 2) bilateral lower lobe atelectasis. 3) recent postsurgical changes in the abdominal cavity. See separate report of abdominal CT.
--- NOTE | 2020-03-18 09:08 | CT ---
EXAM: CT Abdomen Pelvis W Con PROVIDED CLINICAL HISTORY: Post gastric sleeve, tachycardia and anemia COMPARISON: None FINDINGS: There is small-volume bilateral pleural fluid and bibasilar subsegmental atelectatic change. Post gastric sleeve changes are seen. There is a circumscribed fluid collection measuring about 6.3 x 12.1 cm in greatest transverse dimensions by about 11.2 cm in craniocaudal dimension about the greater curvature of the remaining stomach. This demonstrates Hounsfield units compatible with blood products. No definite extravasation of oral contrast material is evident. There is no evidence for free intraperitoneal air. There is mild free intraperitoneal fluid having Hounsfield units borderline for simple fluid, that ma y reflect subacute blood products. The solid abdominal organs demonstrate an unremarkable CT appearance. There is no evidence for bowel obstruction. Fat-containing umbilical hernia is demonstrat ed. The regional major vascular structures appear unremarkable. The osseous structures demonstrate no concerning lytic or blastic lesions. IMPRESSION: 1. 12 cm hematoma adjacent to the greater curvature of the remaining stomach. 2. Mild free intraperitoneal fluid, likely reflecting subacute blood products. 3. Bilateral pleural fluid and bibasilar subsegmental atelectatic change. 4. Findings discussed with Dr. Jeffery via telephone 9:04 AM 03/18/2020.
--- NOTE | 2020-03-18 13:23 | PRG ---
DATE OF SERVICE: 03/18/2020 SUBJECTIVE: Patient had a rough night. She became short of breath and tachycardic. They want to put oxygen on her. She responded to that. This morning, her hemoglobin had dropped from [address] scan was performed. OBJECTIVE: GENERAL: She is more awake than she was. VITAL SIGNS: Temperature is 99.3, pulse 116, blood pressure is 130/72. She is more awake. ABDOMEN: Obese, soft. She has a hematoma on the left lateral abdomen. LABORATORY DATA: Her white count is 13. Her electrolytes show an elevated glucose at 170. A chest CT scan of the abdomen with contrast as well as the chest, no evidence of pulmonary embolus. No evidence of leak. There is significant hematoma along the edges of the stomach as well as in the abdominal wall. ASSESSMENT: Postoperative bleed. PLAN: We are going to continue to follow the H and H as it seems to be slowing down. At this point, do not plan on . Job ID: [id number]
[2020-03-18] MEDS ORDERED: Iopamidol-370 76% 500 ML 1 ML ONE (13:25)
[2020-03-18 13:34] LABS: Hemoglobin 7.6 g/dL (12.0-16.0)
[2020-03-18] MEDS: Promethazine HCl 25 MG/ML VIAL IM PRN (16:22)
[2020-03-18 17:39] LABS: Hemoglobin 8.4 g/dL (12.0-16.0)
[2020-03-18] MEDS ORDERED: Sodium Chloride 0.9% 500 ML IV SCH (18:15)
[2020-03-18] MEDS: fentaNYL Citrate/PF 2,000 MCG in Sodium Chloride 0.9% 60 ML IV PRN (18:44)
--- NOTE | 2020-03-18 18:48 | EKG ---
Test Reason : CP Blood Pressure : / mmHG Vent. Rate : 126 BPM Atrial Rate : 126 BPM P-R Int : 138 ms QRS Dur : 084 ms QT Int : 314 ms P-R-T Axes : 063 025 044 degrees QTc Int : 454 ms Sinus tachycardia Cannot rule out Anterior infarct (cited on or before 12-MAR-2020) Abnormal ECG When compared with ECG of 12-MAR-2020 09:27, (Unconfirmed) Vent. rate has increased BY 56 BPM Nonspecific T wave abnormality, worse in Inferior leads Nonspecific T wave abnormality now evident in Lateral leads Confirmed by RAND RODRIGUEZ, SKeiry ([id number]) on 03/18/2020 6:47:58 PM Referred By: FREDRICK Confirmed By:DR. Dez GORDILLO MD
[2020-03-19 01:07] LABS: Hemoglobin 8.1 g/dL (12.0-16.0)
[2020-03-19] MEDS: D5 1/2 NS w/20 mEq KCL 1,000 ML IV SCH ×3 (02:14→17:09)
[2020-03-19] MEDS: Ondansetron PF 4 MG/2 ML Vial IVP PRN ×3 (02:19→14:42)
[2020-03-19 05:58] LABS: Hemoglobin 8.1 g/dL (12.0-16.0)
[2020-03-19] MEDS: Pantoprazole 40 MG VIAL IVP SCH (07:59)
[2020-03-19] MEDS: Promethazine HCl 25 MG/ML VIAL IM PRN ×3 (08:12→19:25)
--- NOTE | 2020-03-19 09:39 | PRG ---
DATE OF SERVICE: 03/19/2020 SUBJECTIVE: The patient is having quite a bit of nausea. She has been dry heaving, not responding to either Zofran or Phenergan. The pain is okay. She is more awake. OBJECTIVE: VITAL SIGNS: Her temperature is 99, pulse 106, and blood pressure 142/72. GENERAL: She is awake. She is more alert. ABDOMEN: Distended and obese. LABORATORY DATA: Her H and H are 8.1 and 24, which is stable. Her electrolytes are fine. PLAN: We will give her multivitamins and try some Reglan. Job ID: [id number]
[2020-03-19] MEDS: Multivitamins, Adult 10 ML in Sodium Chloride 0.9% 1,000 ML IV SCH (12:07)
[2020-03-19] MEDS: Metoclopramide HCl 10 MG/2 ML VIAL IVP SCH ×2 (12:07→22:02)
[2020-03-19 13:46] LABS: Hemoglobin 9.7 g/dL (12.0-16.0)
[2020-03-19] MEDS: Acetaminophen 650 MG/20.3 ML UDCUP PO PRN (18:43)
[2020-03-19 18:50] LABS: Hemoglobin 8.5 g/dL (12.0-16.0)
[2020-03-20] MEDS: Ondansetron PF 4 MG/2 ML Vial IVP PRN ×2 (03:18→18:26)
[2020-03-20] MEDS: fentaNYL Citrate/PF 2,000 MCG in Sodium Chloride 0.9% 60 ML IV PRN (03:18)
[2020-03-20] MEDS: D5 1/2 NS w/20 mEq KCL 1,000 ML IV SCH ×3 (03:18→17:42)
[2020-03-20] MEDS: Acetaminophen 650 MG/20.3 ML UDCUP PO PRN ×2 (03:18→13:31)
[2020-03-20] MEDS: Metoclopramide HCl 10 MG/2 ML VIAL IVP SCH ×3 (05:44→21:24)
[2020-03-20] MEDS ORDERED: Multivit, Adult Inj 10 ML VIAL IV SCH (09:00)
[2020-03-20] MEDS ORDERED: Morphine 4 MG/ML VIAL SLOW IVP PRN (09:07)
[2020-03-20] MEDS ORDERED: Morphine 2 MG/ML VIAL SLOW IVP PRN (09:07)
[2020-03-20] MEDS ORDERED: DC PCA Order Set 1 EACH FS ONE (09:07)
[2020-03-20] MEDS: Pantoprazole 40 MG VIAL IVP SCH (09:23)
[2020-03-20] MEDS: Hydrocodone-Acetamin 15 ML UDCUP PO PRN ×2 (09:38→17:09)
[2020-03-20] MEDS: Multivitamins, Adult 10 ML in Sodium Chloride 0.9% 1,000 ML IV SCH (13:27)
--- NOTE | 2020-03-20 15:34 | PRG ---
DATE OF SERVICE: 03/20/2020 SUBJECTIVE: The patient is feeling much better today. Her main complaint is headache. Nausea is much improved. She is tolerating sips of liquids. She has passed some flatus. OBJECTIVE: VITAL SIGNS: Her temperature is 98.4, pulse 87, blood pressure 142/83. GENERAL: She is awake and alert. ABDOMEN: Soft, lot of ecchymoses. LABORATORY DATA: Her H and H are 8.5 and 25. ASSESSMENT: Much improved. PLAN: Will discontinue the [employer] LOAN [employer]. Order some morphine p.r.n. Job ID: [id number]
[2020-03-21] MEDS: Acetaminophen 650 MG/20.3 ML UDCUP PO PRN ×2 (00:08→16:05)
[2020-03-21] MEDS: Hydrocodone-Acetamin 15 ML UDCUP PO PRN ×3 (00:09→17:09)
[2020-03-21] MEDS: D5 1/2 NS w/20 mEq KCL 1,000 ML IV SCH ×2 (01:18→16:50)
[2020-03-21] MEDS: Metoclopramide HCl 10 MG/2 ML VIAL IVP SCH ×2 (05:31→16:05)
[2020-03-21] MEDS: Pantoprazole 40 MG VIAL IVP SCH (08:39)
[2020-03-21 16:36] VITALS: BP 145/84; TEMP 98.1
[2020-03-21] MEDS: Multivitamins, Adult 10 ML in Sodium Chloride 0.9% 1,000 ML IV SCH (16:51)
[2020-03-21] MEDS: Ondansetron PF 4 MG/2 ML Vial IVP PRN (17:05)
--- NOTE | 2020-03-24 07:16 | DIS ---
DATE OF ADMISSION: 03/17/2020 DATE OF DISCHARGE: 03/21/2020 DISCHARGE DIAGNOSES: Morbid obesity, postoperative intra-abdominal hemorrhage. PROCEDURES DURING ADMISSION: Laparoscopic sleeve gastrectomy, intraoperative esophagogastroscopy, blood transfusion. HOSPITAL COURSE: The patient was admitted, taken to the operating room where she underwent sleeve gastrectomy. Postoperatively, she initially did well. However, she had a fall. Whether it would be related to the cause or the result of bleeding, post fall she developed increasing abdominal pain, lightheadedness, and tachycardia. Her blood count was followed and it drifted down to 7.5. She remained fairly symptomatic. Her blood pressure remained stable. She wound up getting a unit of blood, that seemed to help and then her hemoglobin remained stable. She is now tolerating liquids well. Her nausea has resolved. She is having bowel movements, passing gas. She is discharged home on hydrocodone, Zofran, and will follow up with me in 2 weeks. Job ID: [id number]
== END 2020-03-21 18:10 | disposition home or self-care (01) | DRG 620 ==
LOC: SURG A 03-17 06:26 → SJJU 03-17 11:23
PROVIDERS: ADMIT Surgery; ATTEND Surgery
PROC: 0DB64Z3 Excision of Stomach, Percutaneous Endoscopic Approach, Vertical (ICD-10-PCS; principal; 2020-03-17)
PROC: 0DJ08ZZ Inspection of Upper Intestinal Tract, Via Natural or Artificial Opening Endoscopic (ICD-10-PCS; 2020-03-17)
PROC: 30233N1 Transfusion of Nonautologous Red Blood Cells into Peripheral Vein, Percutaneous Approach (ICD-10-PCS; 2020-03-18)
DX: E66.01 Morbid (severe) obesity due to excess calories (principal); K91.840 Postprocedural hemorrhage of a digestive system organ or structure following a digestive system procedure; I10 Essential (primary) hypertension; K21.9 Gastro-esophageal reflux disease without esophagitis; G47.33 Obstructive sleep apnea (adult) (pediatric); Z90.49 Acquired absence of other specified parts of digestive tract; Z68.41 Body mass index [BMI] 40.0-44.9, adult; Z79.51 Long term (current) use of inhaled steroids; Z79.899 Other long term (current) drug therapy; Z79.2 Long term (current) use of antibiotics; Z87.891 Personal history of nicotine dependence; Y83.9 Surgical procedure, unspecified as the cause of abnormal reaction of the patient, or of later complication, without mention of misadventure at the time of the procedure; W18.30XA Fall on same level, unspecified, initial encounter
CPT/HCPCS: 36415; 36416; 36430; 71275; 74177; 80048; 85014; 85018; 85025; 86850; 86900; 86901; 88307; 88312; 93005; 93010; C9113; J0690; J1100; J1644; J1885; J2250; J2405; J2550; J2704; J2765; J3010; J3480; J3490; J7050; P9016; Q9967; S0020

== ENCOUNTER 2021-09-16 08:54 | Outpatient (CLI) | payer OTHER, BC | END 2021-09-16 08:55 | disposition home or self-care (01) | LOC: SCSMRI 08:54 | PROVIDERS: ATTEND Nurse Practitioner Family | DX: T14.8XXD Other injury of unspecified body region, subsequent encounter (principal); M79.89 Other specified soft tissue disorders; S62.634A Displaced fracture of distal phalanx of right ring finger, initial encounter for closed fracture; W54.0XXD Bitten by dog, subsequent encounter | CPT/HCPCS: 82565 ==

== ENCOUNTER 2024-10-25 11:33 | Outpatient (CLI) | payer BC | END 2024-10-25 11:34 | disposition home or self-care (01) | LOC: SCSRAD 11:33 | DX: S69.91XA Unspecified injury of right wrist, hand and finger(s), initial encounter (principal) ==